=== PATIENT | male | born 2000 | race Caucasian/White ===

== ENCOUNTER 2022-03-21 09:36 | Emergency (ER) | payer OTHER ==
[~2022-03-21] VITALS: Ht 175.3 cm; Wt 59.0 kg
[2022-03-21] MEDS ORDERED: HYDROCODON-ACE1 EA10 PO (11:54)
== END 2022-03-21 12:08 | disposition home or self-care (01) ==
LOC: ED 09:36
DX: S22.42XA Multiple fractures of ribs, left side, initial encounter for closed fracture (principal); W19.XXXA Unspecified fall, initial encounter
CPT/HCPCS: 36415; 71046; 74177; 80053; 81001; 83690; 85025; 99284-25; J7121; Q9967

== ENCOUNTER 2022-06-23 10:55 | Emergency (ER) | payer OTHER ==
[~2022-06-23] VITALS: Ht 177.8 cm; Wt 63.5 kg
[~2022-06-23 10:55] MED LIST: HYDROCODON-ACE1 EA10 PO
== END 2022-06-23 12:50 | disposition home or self-care (01) ==
LOC: ED 10:55
DX: S91.332A Puncture wound without foreign body, left foot, initial encounter (principal); Z23 Encounter for immunization; W22.8XXA Striking against or struck by other objects, initial encounter
CPT/HCPCS: 90471; 90715; 99283-25; A9270